=== PATIENT | female | born 1965 | race Caucasian/White ===

== ENCOUNTER 2019-04-18 12:00 | Emergency (ER) | payer MEDICAID, MEDICARE ==
[~2019-04-18] VITALS: Ht 170.2 cm; Wt 103.2 kg
[~2019-04-18 12:00] MED LIST: AMOX1TAB64 PO; CLIN300C8 PO; HYDR2TAB29 PO; MORP30TA14 PO; OXYC-302 PO; TIZA4CAP2 PO; TRAM50TA2 PO; TRAZ-137 PO; [UNRECOGNIZED DRUG - REMARK]
[2019-04-18] MEDS ORDERED: METHOCARBAMOL 750 MG TABLET PO ONE (12:30)
[2019-04-18] MEDS ORDERED: KETOROLAC 30 MG/1 ML IM ONE (12:30)
--- NOTE | 2019-04-18 12:32 | NUR ---
PT TO ED FROM HOME. C/O R KNEE PAIN AND LOW/MIDBACK PAIN (HAS CHX BACK PAIN HAS HAD 2 BACK SURGERIES IN PAST). FELL TUESDAY, HURT KNEE. UTI SX STARTING TUESDAY. DRANK "A LOT OF VODKA" THIS MORNING "BEAUSE I WAS IN PAIN". ERMD IN TO SEE PT. PLAN FOR XR, UA, AND PAIN MEDS. PT VERBALIZES UNDERTANDING. A&O X4 GCS 15, PLEASANT, COOPERATIVE.
[2019-04-18] MEDS ORDERED: METHOCARBAMOL 750 MG TABLET ONE (12:38)
[2019-04-18] MEDS ORDERED: KETOROLAC 30 MG/1 ML ONE (12:38)
[2019-04-18 12:55] LABS: MICROSCOPIC AUTO
[2019-04-18 13:39] VITALS: BP 139/87
[2019-04-18] MEDS ORDERED: MIRT30TA97 PO (13:41)
== END 2019-04-18 14:10 | disposition home or self-care (01) ==
LOC: ED 13:59
DX: S80.01XA Contusion of right knee, initial encounter (principal); G89.29 Other chronic pain; M48.56XA Collapsed vertebra, not elsewhere classified, lumbar region, initial encounter for fracture; N30.00 Acute cystitis without hematuria; J44.9 Chronic obstructive pulmonary disease, unspecified; F10.229 Alcohol dependence with intoxication, unspecified; W18.39XA Other fall on same level, initial encounter; Y93.89 Activity, other specified; Y92.89 Other specified places as the place of occurrence of the external cause; Y99.8 Other external cause status
CPT/HCPCS: 72110; 73564; 81001; 96372; 99284; J1885

== ENCOUNTER 2019-05-26 10:28 | Emergency (ER) | payer MEDICARE, MEDICAID ==
[~2019-05-26] VITALS: Ht 172.7 cm; Wt 107.0 kg
[~2019-05-26 10:28] MED LIST changes: +MIRT30TA97 PO
[2019-05-26 10:39] VITALS: BP 119/80
--- NOTE | 2019-05-26 10:51 | NUR ---
THIS IS A 53 YO F W/ C/O RT KNEE PAIN AND SWELLING THAT STARTED 4 DAYS AGO. HX OF FALLING ON RT KNEE "A FEW MONTHS AGO" W/ NEGATIVE EXAMS. PATIENT IS RESTING ON GURNEY, SLIGHTLY SHORT OF BREATH FROM CHANGING. CALL LIGHT IN REACH. SIDE RAILS UP X1.
[2019-05-26] MEDS ORDERED: LIDOCAINE 1%, 10ML INFIL ONE (11:30)
[2019-05-26] MEDS ORDERED: LIDOCAINE-MPF 1%, 5ML ONE (11:34)
--- NOTE | 2019-05-26 12:46 | NUR ---
Patient given discharge instructions and they have confirmed that they understand the instructions. Patient ambulatory with steady gait.
== END 2019-05-26 12:48 | disposition home or self-care (01) ==
LOC: ED 12:30
DX: M25.461 Effusion, right knee (principal); K21.9 Gastro-esophageal reflux disease without esophagitis; G47.30 Sleep apnea, unspecified; J44.9 Chronic obstructive pulmonary disease, unspecified
CPT/HCPCS: 20610; 99284; J3490; 29105; 29505; 99283